=== PATIENT | female | born 1965 | race Caucasian/White ===

== ENCOUNTER 2020-06-24 12:28 | Emergency (ER) | payer OTHER, SELFPAY ==
[2020-06-24 12:55] VITALS: BP 108/66; PULSE 69; RESP 16; TEMP 36.1; O2SAT 97; BMI 34.3
--- NOTE | 2020-06-24 13:11 | XRR_ITS ---
PROCEDURE INFORMATION: Exam: XR Lumbosacral Spine, 2 or 3 Views Exam date and time: 06/24/2020 1:41 PM Age: 55 years old Clinical indication: Injury or trauma; Work related; Initial encounter; Blunt trauma (contusions or hematomas); Injury date: 06/23/20; Injury details: Fall at work, work comp; Additional info: Back pain fall TECHNIQUE: Imaging protocol: XR of the lumbosacral spine, 2 or 3 views. COMPARISON: No relevant prior studies available. FINDINGS: Vertebrae: The lumbar vertebral bodies maintain height and alignment. The facets align normally. No acute fracture. Mild disc space narrowing at L5-S1. Minimal anterior osteophyte formation at L3-L4. Soft tissues: No acute soft tissue abnormality. XR/XR lumbar spine 2-3V* [id number] IMPRESSION: No acute osseous abnormality.
--- NOTE | 2020-06-24 13:11 | XRR_ITS ---
PROCEDURE INFORMATION: Exam: XR Cervical Spine, 2 or 3 Views Exam date and time: 06/24/2020 1:41 PM Age: 55 years old Clinical indication: Injury or trauma; Work related; Initial encounter; Blunt trauma; Injury date: 06/23/20; Injury details: Fall at work, work comp case TECHNIQUE: Imaging protocol: XR of the cervical spine, 2 or 3 views. COMPARISON: No relevant prior studies available. FINDINGS: Vertebrae: The cervical vertebral bodies maintain height and alignment. The spinolaminar line is intact. There is multilevel disc and uncovertebral joint degeneration. There is multilevel bilateral facet arthropathy. No acute fracture line is identified. Soft tissues: No prevertebral soft tissue swelling. XR/XR cervical spine 3V* [id number] IMPRESSION: 1. No acute osseous abnormality. 2. Multilevel degenerative changes.
--- NOTE | 2020-06-24 13:56 | ED_ITS ---
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 Denies any neck pain or upper back pain from the fall but does have pain starting to radiate up her back from her low back presently MD complaint: fall Onset (ago): day(s) (1) Fall from: standing Fall witnessed: yes, by bystander Place fall occurred: work Loss of consciousness: None Prolonged down time: no Symptoms prior to fall: none Context: tripped/slipped Location of injury: back Severity: moderate Severity scale (1-10): 6 Quality: aching Associated symptoms-after fall: Reports no associated symptoms; Denies abdominal pain, chest pain or headache(s) Review of Systems Const: Denies: fever(s), chills or body aches Eyes: Denies: change in vision or blurry vision ENMT: Denies: throat pain or nasal congestion Card: Denies: chest pain or dyspnea on exertion Resp: Denies: dyspnea, productive cough or non-productive cough GI: Denies: abdominal pain, nausea or vomiting Musc: Denies: extremity pain Skin/Breast: Denies: rash Neuro: Denies: headache(s) Psych: Denies: anxiety or depression Laci/Lymph: Denies: easy bruising PFSH ED PFSH: Social History (Updated 06/24/20 @ 13:02 by Flex Reagan RN) Smoking and tobacco status: heavy tobacco smoker Alcohol intake: never Substance/Drug Use: never Physical Exam Const: COMMON NORMALS: no acute distress, average body habitus and patient oriented x3 HENMT: COMMON NORMALS: normocephalic HEAD & SCALP: normal to inspection and normocephalic FACE & SINUS: normal facial exam Eye: COMMON NORMALS: conjunctivae normal GENERAL EYE: appearance normal, both eyes and all related structures CONJUNCTIVA: Yes conjunctivae normal Neck/C-Spine: COMMON NORMALS: full ROM (Neck muscles are sore) and no JVD Chest: COMMONS NORMALS: normal inspection of the chest Resp: COMMON NORMALS: normal respiratory effort and clear to auscultation bilaterally AUSCULTATION: clear to auscultation bilaterally Cardio: COMMON NORMALS: no JVD, regular rate and regular rhythm RATE: regular rate RHYTHM: regular rhythm GI: COMMON NORMALS: Normal to inspection, nondistended, normoactive bowel sounds present Back/Pelvis: LUMBAR SPINE/LOWER BACK: Yes lumbar spinal tenderness (Right side) Extremity: COMMON NORMALS: normal to inspection and full ROM Neuro: COMMON NORMALS: patient oriented x3 Course Vital Signs: Vital signs: Vital Signs Temperature 97 F L 06/24/20 12:55 Pulse Rate 69 06/24/20 12:55 Respiratory Rate 16 06/24/20 12:55 Blood Pressure 108/66 06/24/20 12:55 Pulse Oximetry 97 06/24/20 12:55 Discharge Plan Discharge Prescriptions: No Action Euthyrox 137 mcg tablet 137 mcg PO DAILY RF: 0 atorvastatin 10 mg tablet 10 mg PO DAILY RF: 0 potassium chloride 10 mEq tablet extended release 10 meq PO DAILY RF: 0 citalopram 20 mg tablet 20 mg PO DAILY RF: 0 furosemide 20 mg tablet 20 mg PO DAILY RF: 0 Vitamin B-12 1 tab PO DAILY RF: 0 Vitamin C 2 tab PO DAILY RF: 0 Vitamin D3 1 cap PO DAILY RF: 0 Coding Level of Care Code ED Clerk Travel Reservations for [facility]
[2020-06-24 14:34] VITALS: BP 130/70; PULSE 60; RESP 16; O2SAT 97
== END 2020-06-24 14:37 | disposition home or self-care (01) ==
PROVIDERS: Emergency Provider Nurse Practitioner Family
DX: M54.5 Low back pain (principal); F17.210 Nicotine dependence, cigarettes, uncomplicated; W01.198A Fall on same level from slipping, tripping and stumbling with subsequent striking against other object, initial encounter; Y93.H3 Activity, building and construction; Y99.0 Civilian activity done for income or pay
CPT/HCPCS: 12345; 72040; 72100; 99281; 99283